=== PATIENT | female | born 2000 | race Two or more races ===

== ENCOUNTER 2021-01-05 20:32 | Emergency (ER) | payer MEDICAID, OTHER ==
[~2021-01-05] VITALS: Ht 157.5 cm; Wt 59.9 kg
[2021-01-05 20:54] LABS: Urine Bacteria FEW /hpf (None Seen); Urine Blood Negative /uL (Negative); Urine Specific Gravity 1.016 (1.001-1.035); Urine WBC 10 /hpf (0 - 5)
[2021-01-05 22:11] LABS: Basophils # (auto) 0 10 ^3/uL (0-0.2); Basophils % (auto) 0.5 % (0.0-2.0); Eosinophils # (auto) 0 10 ^3/uL (0-0.8); Eosinophils % (auto) 0.4 % (0.0-7.0); Hematocrit 44.2 % (36.0-46.0); Hemoglobin 15.4 g/dL (12.2-16.2); Lymphocytes # (auto) 1.4 10 ^3/uL (0.4-5.4); Lymphocytes % (auto) 17.8 % (10.0-50.0); Mean Corpuscular Hemoglobin 30.7 pg (28.0-32.0); Mean Corpuscular Hgb Conc. 34.8 g/dL (32.0-36.0); Mean Corpuscular Volume 88.2 fL (80.0-100.0); Monocytes # (auto) 0.4 10 ^3/uL (0-1.3); Monocytes % (auto) 5.7 % (0.0-12.0); Neutrophils # (auto) 5.9 10 ^3/uL (1.6-8.6); Neutrophils % (auto) 75.6 % (37.0-80.0); Nucleated Red Blood Cells % 0.1 %; Red Blood Cells 5.01 10^6/uL (4.0-5.20); Red Cell Distribution Width 12.4 % (11.8-14.3); White Blood Cell 7.8 10^3/uL (4.4-10.8)
[2021-01-05 22:41] LABS: Albumin 3.9 g/dL (3.4-5.0); Calcium 9.6 mg/dL (8.5-10.1); Potassium 4.1 mmol/L (3.5-5.1)
[2021-01-05 22:44] LABS: BUN/Creatinine Ratio 14.1; Bilirubin, Total 0.3 mg/dL (0.2-1.0); Total Protein 8.1 g/dL (6.4-8.2)
[2021-01-05 23:19] VITALS: BP 118/80
== END 2021-01-05 23:21 | disposition home or self-care (01) ==
LOC: ER 20:34
DX: N39.0 Urinary tract infection, site not specified (principal); R11.2 Nausea with vomiting, unspecified; R19.7 Diarrhea, unspecified
CPT/HCPCS: 36415; 74176; 80053; 81001; 81025; 83690; 85025

== ENCOUNTER 2021-01-18 19:55 | Emergency (ER) | payer MEDICAID ==
[~2021-01-18] VITALS: Ht 157.5 cm; Wt 59.9 kg
[2021-01-18 21:31] LABS: Urine Bacteria MOD /hpf (None Seen); Urine Blood Negative /uL (Negative); Urine Mucus FEW (None Seen); Urine WBC 48 /hpf (0 - 5)
[2021-01-18 22:26] VITALS: BP 143/80
== END 2021-01-18 22:28 | disposition home or self-care (01) ==
LOC: ER 19:59
DX: N39.0 Urinary tract infection, site not specified (principal); Z32.02 Encounter for pregnancy test, result negative
CPT/HCPCS: 81001; 81025; 87086

== ENCOUNTER 2021-01-22 10:19 | Emergency (ER) | payer MEDICAID ==
[~2021-01-22] VITALS: Ht 157.5 cm; Wt 59.9 kg
[2021-01-22 10:55] LABS: Urine Bacteria NONE SEEN /hpf (None Seen); Urine Blood Negative /uL (Negative); Urine Mucus FEW (None Seen); Urine Specific Gravity 1.015 (1.001-1.035); Urine WBC 3 /hpf (0 - 5)
[2021-01-22 12:43] VITALS: BP 138/73
[2021-01-22] MEDS ORDERED: cefTRIAXone SOD 1,000 MG VL IM ONE (13:45)
[2021-01-22] MEDS ORDERED: LIDOCAINE 1% HCL (LOCAL ANESTH.) INJ 20ML MDV ONE (13:50)
== END 2021-01-22 13:50 | disposition home or self-care (01) ==
LOC: ER 10:19
DX: N39.0 Urinary tract infection, site not specified (principal)
CPT/HCPCS: 81001; 81025; 87086; 96372; 99283; J0696; J2001

== ENCOUNTER 2024-07-09 09:27 | Emergency (ER) | payer MEDICAID, OTHER ==
[~2024-07-09] VITALS: Ht 157.5 cm; Wt 67.5 kg
[2024-07-09 09:55] VITALS: BP 112/72; PULSE 108; RESP 16; TEMP 98; O2SAT 97
--- NOTE | 2024-07-09 10:04 | ED.PDOC ---
TEST ENGINE OPERATOR HPI Comments A 23 YEAR OLD FEMALE PRESENTS TO THE ED WITH COMPLAINT OF ABNORMAL VAGINAL BLEEDING X TODAY WITH ABD CRAMPING. PT STATES SHE IS SPOTTING BROWN BLOOD. PT IS APPROXIMATELY 7 WEEKS WITH LMP 04/20/2024. PT DOES NOT HAVE TEST ENGINE OPERATOR YET. PATIENT DENIES FEVER, CHILLS, SHORTNESS OF BREATH, CHEST PAIN, NAUSEA, VOMITING, HEADACHE, OR OTHER COMPLAINTS. NO OTHER SYMPTOMS OR MODIFYING FACTORS AT THIS TIME.PATIENT IS ALERT, ORIENTED X 4, AND HAS STEADY GAIT. Chief Complaint: Vaginal Bleed Time Seen by MD: 09:52 Reviewed Notes: Nurses Notes, Medications, Allergies Allergies: Coded Allergies: NO KNOWN ALLERGIES (Unverified , 01/18/21) Home Meds Active Scripts Ondansetron Odt 4MG Tab (ZOFRAN PO) 4 Mg Tb, 4 MG PO BID, #20 TAB ODT TAB-DISSOLVE IN MOUTH, THEN SWALLOW Prov:FILEMON GAVIN 07/09/24 Nitrofurantoin Monohydrate Mac (Macrobid) 100 Mg Cap, 100 MG PO BID, #14 CAP Prov:FILEMON GAVIN 07/09/24 Information Source: Patient Mode of Arrival: Ambulatory Timing: Hours Severity: Mild Vaginal Discharge: None Vaginal Lesions: None Bleeding Quality: Dark Vaginal Mass: None Onset Of Mass/Bleeding: Spontaneous Sexual Activity: Last Consensual [place]: Unknown Control: None History of: Current Blood Type: Unknown Associated Signs and Symptoms: Vaginal Bleeding, Cramping Past Medical History PAST MEDICAL HISTORY: UTI'S Surgical History: Denies all surgeries OPERATIONAL RISK MANAGER History: No Pertinent OPERATIONAL RISK MANAGER History Family History Family History: Reviewed,noncontributory to illness Social History Smoker: Non-Smoker Alcohol: Denies ETOH Use Drugs: Denies Drug Use Lives In: Home Constitutional: denies: chills, diaphoresis, fatigue, fever, malaise, sweats, weakness, others EENTM: denies: blurred vision, double vision, ear bleeding, ear discharge, ear drainage, ear pain, ear ringing, eye pain, eye redness, hearing loss, mouth pain, mouth swelling, nasal discharge, nose bleeding, nose congestion, nose pain, photophobia, tearing, throat pain, throat swelling, voice changes, others Respiratory: denies: cough, hemoptysis, orthopnea, SOB at rest, shortness of breath, SOB with excertion, stridor, wheezing, others Cardiovascular: denies: chest pain, dizzy spells, diaphoresis, Dyspnea on exertion, edema, irregular heart beat, left arm pain, lightheadedness, palpitations, PND, syncope, others Gastrointestinal: denies: abdomen distended, abdominal pain, blood streaked bowels, constipated, diarrhea, dysphagia, difficulty swallowing, hematemesis, melena, nausea, poor appetite, poor fluid intake, rectal bleeding, rectal pain, vomiting, others Genitourinary: reports: abnormal vagina bleeding, dysuria, pain, ; denies: dyspareunia, flank pain, frequency, hematuria, incontinence, vagina discharge, urgency, others Neurological: denies: dizziness, fainting, headache, left sided numbness, left sided weakness, numbness, paresthesia, pre-existing deficit, right sided numbness, right sided weakness, seizure, speech problems, tingling, tremors, weakness, others Musculoskeletal: denies: back pain, gout, joint pain, joint swelling, muscle pain, muscle stiffness, neck pain, others Integumetry: denies: bruises, change in color, change in hair/nails, dryness, laceration, lesions, lumps, rash, wounds, others Allergic/Immunocompromised: denies: Difficulty Healing, Frequent Infections, Hives, Itching, others Hematologic/Lymphatic: denies: anemia, blood clots, easy bleeding, easy bruising, swollen glands, others Endocrine: denies: excessive hunger, excessive sweating, excessive thirst, excessive urination, flushing, intolerance to cold, intolerance to heat, unexplained weight gain, unexplained weight loss, others Psychiatric: denies: anxiety, bipolar disorder, depression, hopeless, panic disorder, schizophrenia, sleepless, suicidal, others All Other Systems: Reviewed and Negative Physical Exam General Appearance: No Apparent Distress, Normal HEENT: Normal ENT Inspection, PERRL/EOMI, Pharynx Normal, TMs Normal Neck: Full Range of Motion, Non-Tender, Normal, Normal Inspection Respiratory: Chest Non-Tender, Lungs Clear, No Accessory Muscle Use, No Respiratory Distress, Normal Breath Sounds Cardiovascular: No Edema, No JVD, No Murmur, No Gallop, Normal Peripheral Pulses, Regular Rate/Rhythm Breast Exam: Deferred Gastrointestinal: No Organomegaly, Non Tender, No Pulsatile Mass, Normal Bowel Sounds, Soft Genitalia: Deferred Pelvic: Normal Adnexa, Tender Uterus, Other (VAGINAL SPOTTING, NO VAGINAL BLEEDING AND BLOOD CLOTS. ) Rectal: Deferred Extremities: No calf tenderness, Normal capillary refill, Normal inspection, Normal range of motion, Non-tender, No pedal edema Musculoskeletal : Apperance: Normal Neurologic: Alert, rn office II-XII nml as Tested, No Motor Deficits, Normal Affect, Normal Mood, No Sensory Deficits Cerebellar Function: Normal Reflexes: Normal Skin: Dry, Normal Color, Warm Peripheral Pulses: 2+ carotid (R), 2+ carotid (L) Lymphatic: No Adenopathy Was a procedure done? Was a procedure done?: No Differential Diagnosis (OPERATIONAL RISK MANAGER) Vaginal Bleeding: - Threatened, Ectopic , UTI Vaginal Discharge: UTI X-Ray, Labs, Meds, VS Vital Signs Date Time Temp Pulse Resp B/P (MAP) Pulse Ox O2 Delivery O2 Flow Rate FiO2 07/09/24 09:55 98.0 108 16 112/72 (85) 97 98.0 07/09/24 09:55 108 16 97 Room Air 07/09/24 09:37 97.9 110 16 114/70 (85) 98 Lab Test 07/09/24 10:45 07/09/24 09:54 Range/Units White Blood Count 6.8 4.4-10.8 10^3/uL Red Blood Count 5.22 H 4.0-5.20 10^6/uL Hemoglobin 16.1 12.2-16.2 g/dL Hematocrit 46.4 H 36.0-46.0 % Mean Corpuscular Volume 88.9 80.0-100.0 fL Mean Corpuscular Hemoglobin 30.8 28.0-32.0 pg Mean Corpuscular Hemoglobin Concent 34.6 32.0-36.0 g/dL Red Cell Distribution Width 12.7 11.8-14.3 % Platelet Count 305 140-450 10^3/uL Mean Platelet Volume 7.5 6.9-10.8 fL Neutrophils (%) (Auto) 72.6 37.0-80.0 % Lymphocytes (%) (Auto) 19.7 10.0-50.0 % Monocytes (%) (Auto) 5.9 0.0-12.0 % Eosinophils (%) (Auto) 1.3 0.0-7.0 % Basophils (%) (Auto) 0.5 0.0-2.0 % Neutrophils # (Auto) 4.9 1.6-8.6 10 ^3/uL Lymphocytes # (Auto) 1.3 0.4-5.4 10 ^3/uL Monocytes # (Auto) 0.4 0-1.3 10 ^3/uL Eosinophils # (Auto) 0.1 0-0.8 10 ^3/uL Basophils # (Auto) 0 0-0.2 10 ^3/uL Nucleated Red Blood Cells 0.1 % Beta HCG, Quantitative 23385.6 H 1.5-4.2 mIU/mL Urine Color Light-yellow Yellow Urine Clarity Clear Clear Urine pH 6.5 5.0-9.0 Urine Specific [place] 1.014 1.001-1.035 Urine Protein Negative Negative Urine Ketones Negative Negative Urine Blood 2+ H Negative /uL Urine Nitrite Negative Negative Urine Bilirubin Negative Negative Urine Urobilinogen Normal Negative mg/dL Urine Leukocyte Esterase 2+ Negative /uL Urine RBC 2 0 - 4 /hpf Urine Microscopic WBC 4 0-5 /HPF Urine Squamous Epithelial Cells Few <5 /hpf Urine Bacteria Few H None Seen /hpf Urine Glucose Normal Normal mg/dL [place] [id number] Ph: [phone] DIAGNOSTIC IMAGING Diagnostic Imaging Report : [id number] Signed PATIENT: JEWELL MALDONADO ACCT: [id number] UNIT: [id number] : 2000 LOC: ER ROOM / BED: / AGE / SEX: 23 / F ADM STATUS: REG ER SERVICE [id number] ORDERING PHYSICIAN: FILEMON GAVIN PROCEDURE(s): OB4US - OB ULTRASOUND COMP LESS 14WKS REASON: VAGINAL SPOTTING ORDER NUMBER(s): [id number], ACCESSION NUMBER(s): [id number] STUDY: Transabdominal and Transvaginal Pelvic Ultrasound. Indication: VAGINAL SPOTTING COMPARISON: None FINDINGS: The uterus measures 9.5 cm. Intrauterine gestational sac measuring 1.5 cm. crown-rump length is 6 mm. Yolk sac present. No heart tones identified. Subchorionic hemorrhage measuring 1.4 x 0.9 cm. The right ovary measures 2.5 x 1.7 x 2.4 cm. Right ovarian cyst with simple features measuring 4.3 cm. The left ovary measures 5 x 3.5 x 4.9 cm . Bilateral ovarian Doppler flow is identified. No free fluid is seen within the pelvis. IMPRESSION: 1. Intrauterine dating to 6 weeks, 1 day. Subchorionic hemorrhage measuring 1.4 cm. 2. 6 mm. NoFetal crown-rump length heart tones identified, raising concern /suspicious for failed early . Recommend follow-up ultrasound and beta HCG correlation. 3. Right ovarian cyst with simple features measuring 4.3 cm. ATED BY: JOSE LUIS GARCIA MD DICTATED DATE/TIME: 07/09/241057 SIGNED BY: JOSE LUIS GARCIA MD SIGNED DATE/TIME: 07/09/241057 CC: X-Ray, Labs, Meds, VS Comment COURSE: EXTERNAL MEDICAL RECORDS REVIEWED: [NONE] INDEPENDENT HISTORIANS: [NONE] SOCIAL DETERMINANTS OF HEALTH: [NONE] LABS ORDERED: CBC, BETA HCG QUANT, UA REVIEWED AND INTERPRETED RESULTS: CBC, BETA HCG QUANT, UA IMAGING ORDERED: OB U/S TREATMENTS ORDERED: NONE PROCEDURES PERFORMED: NONE CRITICAL CARE TIME: NONE I HAVE DISCUSSED THE PATIENT WITH THE ATTENDING PHYSICIAN DR. PUGA AND HE AGREES WITH THE PATIENT'S PLAN OF CARE AND DISPOSITION. BASED ON HISTORY OF PRESENT ILLNESS, AND PHYSICAL EXAM, PATIENT WILL BE DISCHARGED HOME. DISCUSSED PLAN FOR DISCHARGE HOME WITH RX. MEDICATION WARNINGS GIVEN. SHARED DECISION MAKING: DISCUSSED WITH PATIENT THAT THEIR WORKUP WAS NORMAL. PATIENT INSTRUCTED TO FOLLOW UP WITH PRIMARY CARE PROVIDER IN 1-2 DAYS FOR RE- EVALUATION OF SYMPTOMS. PATIENT VERBALIZES UNDERSTANDING TO RETURN TO ED FOR NEW OR WORSENING SYMPTOMS OR IF FOLLOW UP WITH PCP CANNOT BE OBTAINED. PATIENT FEELS COMFORTABLE GOING HOME AT THIS TIME. ALL QUESTIONS ADDRESSED AT TIME OF DISCHARGE. Time of 1ST Reevaluation: 12:12 Reevaluation 1ST: Improved Patient Education/Counseling: Diagnosis, Treatment, Need For Follow Up Family Education/Counseling: Diagnosis, Treatment, No Family Present Medical Screening: No EMC Exist At This Time Departure 1 Departure Time of Disposition: 12:12 Impression: Primary Impression: Vaginal spotting Additional Impressions: Threatened in first trimester Right ovarian cyst Acute cystitis Qualified Codes: N30.00 - Acute cystitis without hematuria Disposition: HOME / SELF CARE / HOMELESS Condition: Stable Additional Instructions: FOLLOW-UP WITH TEST ENGINE OPERATOR IN 2 DAYS. TAKE MEDICATIONS PRESCRIBED. RETURN TO ED FOR ANY NEW OR WORSENING SYMPTOMS. e-Prescriptions Ondansetron Odt 4MG Tab (ZOFRAN PO) 4 Mg Tb 4 MG PO BID, #20 TAB ODT TAB-DISSOLVE IN MOUTH, THEN SWALLOW Prov: FLIEMON GAVIN 07/09/24 Nitrofurantoin Monohydrate Mac (Macrobid) 100 Mg Cap 100 MG PO BID, #14 CAP Prov: FILEMON GAVIN 07/09/24 Discharged With: Self Critical Care Note Critical Care Time?: No Stability Stability form required: No Heart Score Heart Score: Heart Score Response (Comments) Value History N/A 0 EKG N/A 0 Age N/A 0 Risk Factors N/A 0 Troponin N/A 0 Total 0 I personally scribed for FILEMON GAVIN ([email or web address]) on 07/09/24 at 10:03. Electronically submitted by Barbie Engel ([email or web address]). I personally scribed for FILEMON GAVIN ([email or web address]) on 07/09/24 at 11:02. Electronically submitted by Barbie Engel ([email or web address]). FILEMON GAVIN Jul 09, 2024 10:03
[2024-07-09 10:24] LABS: Urine Bacteria FEW /hpf (None Seen); Urine Blood 2+ /uL (Negative); Urine Clarity Clear (Clear); Urine Color Light-Yellow (Yellow); Urine Protein, UAD Negative (Negative); Urine Specific Gravity 1.014 (1.001-1.035); Urine Squamous Epithelial Cell FEW /hpf (<5); Urine Urobilinogen Normal (Negative); Urine WBC 4 /HPF (0-5); Urine pH 6.5 (5.0-9.0)
--- NOTE | 2024-07-09 11:01 | DVH ---
STUDY: Transabdominal and Transvaginal Pelvic Ultrasound. Indication: VAGINAL SPOTTING COMPARISON: None FINDINGS: The uterus measures 9.5 cm. Intrauterine gestational sac measuring 1.5 cm. crown-rump length is 6 mm. Yolk sac present. No heart tones identified. Subchorionic hemorrhage measuring 1.4 x 0.9 cm. The right ovary measures 2.5 x 1.7 x 2.4 cm. Right ovarian cyst with simple features measuring 4.3 c m. The left ovary measures 5 x 3.5 x 4.9 cm . Bilateral ovarian Doppler flow is identified. No free fluid is seen within the pelvis. IMPRESSION: 1. Intrauterine dating to 6 weeks, 1 day. Subchorionic hemorrhage measuring 1.4 cm. 2. 6 mm. NoFetal crown-rump length heart tones identified, raising concern /suspicious for failed ea rly . Recommend follow-up ultrasound and beta HCG correlation. 3. Right ovarian cyst with simple features measuring 4.3 cm.
[2024-07-09 11:17] LABS: Basophils # (auto) 0 10 ^3/uL (0-0.2); Basophils % (auto) 0.5 % (0.0-2.0); Eosinophils # (auto) 0.1 10 ^3/uL (0-0.8); Eosinophils % (auto) 1.3 % (0.0-7.0); Hematocrit 46.4 % (36.0-46.0); Hemoglobin 16.1 g/dL (12.2-16.2); Lymphocytes # (auto) 1.3 10 ^3/uL (0.4-5.4); Lymphocytes % (auto) 19.7 % (10.0-50.0); Mean Corpuscular Hemoglobin 30.8 pg (28.0-32.0); Mean Corpuscular Hgb Conc. 34.6 g/dL (32.0-36.0); Mean Corpuscular Volume 88.9 fL (80.0-100.0); Monocytes # (auto) 0.4 10 ^3/uL (0-1.3); Monocytes % (auto) 5.9 % (0.0-12.0); Neutrophils # (auto) 4.9 10 ^3/uL (1.6-8.6); Neutrophils % (auto) 72.6 % (37.0-80.0); Nucleated Red Blood Cells % 0.1 %; Platelet Count (auto) 305 10^3/uL (140-450); Red Blood Cells 5.22 10^6/uL (4.0-5.20); Red Cell Distribution Width 12.7 % (11.8-14.3); White Blood Cell 6.8 10^3/uL (4.4-10.8)
[2024-07-09] MEDS ORDERED: ZOFR4T PO (12:11)
[2024-07-09] MEDS ORDERED: NITR-87 PO (12:11)
== END 2024-07-09 12:23 | disposition home or self-care (01) ==
LOC: ER 09:27
DX: O20.0 Threatened abortion (principal); N93.8 Other specified abnormal uterine and vaginal bleeding; N83.201 Unspecified ovarian cyst, right side; Z3A.01 Less than 8 weeks gestation of pregnancy
CPT/HCPCS: 36415; 76801; 76817; 81001; 84702; 85025

== ENCOUNTER 2024-08-11 22:56 | Emergency (ER) | payer MEDICAID, OTHER ==
[~2024-08-11] VITALS: Ht 157.5 cm; Wt 80.0 kg
[~2024-08-11 22:56] MED LIST: NITR-87 PO; ZOFR4T PO
--- NOTE | 2024-08-11 23:28 | ED.PDOC ---
HISTORIC CLOTHING AND COSTUME MAKER HPI Comments 23-year-old female that came to ER for vaginal bleeding. Patient is a , approximately 6 week . About 2 hours ago, she started having profuse vaginal bleeding, associated with lower abdominal cramping pain. Patient on the way to the emergency room had a syncopal attack. Blood pressure upon arrival was 128/104 mmHg Chief Complaint: Vaginal Bleed Time Seen by MD: 23:27 Reviewed Notes: Nurses Notes Allergies: Coded Allergies: NO KNOWN ALLERGIES (Unverified , 01/18/21) Home Meds Active Scripts Ondansetron Odt 4MG Tab (ZOFRAN PO) 4 Mg Tb, 4 MG PO BID, #20 TAB ODT TAB-DISSOLVE IN MOUTH, THEN SWALLOW Prov:FILEMON GAVIN 07/09/24 Nitrofurantoin Monohydrate Mac (Macrobid) 100 Mg Cap, 100 MG PO BID, #14 CAP Prov:FILEMON GAVIN 07/09/24 Information Source: Patient Mode of Arrival: Ambulatory Timing: Hours Severity: Severe Bleeding Quality: Bright Red, Dark Onset Of Mass/Bleeding: Spontaneous Sexual Activity: Last Consensual [place]: Unknown Associated Signs and Symptoms: Vaginal Bleeding, Abdominal Pain, Faintness, Cramping Past Medical History PAST MEDICAL HISTORY: UTI'S Surgical History: Denies all surgeries SENIOR NETWORK ENGINEER History: No Pertinent SENIOR NETWORK ENGINEER History 2 Para 0 Family History Family History: Reviewed,noncontributory to illness Social History Smoker: Non-Smoker Alcohol: Denies ETOH Use Drugs: Denies Drug Use Lives In: Home Constitutional: denies: chills, diaphoresis, fatigue, fever, malaise, sweats, weakness, others EENTM: denies: blurred vision, double vision, ear bleeding, ear discharge, ear drainage, ear pain, ear ringing, eye pain, eye redness, hearing loss, mouth pain, mouth swelling, nasal discharge, nose bleeding, nose congestion, nose pain, photophobia, tearing, throat pain, throat swelling, voice changes, others Respiratory: denies: cough, hemoptysis, orthopnea, SOB at rest, shortness of breath, SOB with excertion, stridor, wheezing, others Cardiovascular: denies: chest pain, dizzy spells, diaphoresis, Dyspnea on exertion, edema, irregular heart beat, left arm pain, lightheadedness, palpitations, PND, syncope, others Gastrointestinal: reports: abdominal pain; denies: abdomen distended, blood streaked bowels, constipated, diarrhea, dysphagia, difficulty swallowing, hematemesis, melena, nausea, poor appetite, poor fluid intake, rectal bleeding, rectal pain, vomiting, others Genitourinary: reports: abnormal vagina bleeding; denies: burning, dyspareunia, dysuria, flank pain, frequency, hematuria, incontinence, pain, , vagina discharge, urgency, others Neurological: reports: dizziness, fainting; denies: headache, left sided numbness, left sided weakness, numbness, paresthesia, pre-existing deficit, right sided numbness, right sided weakness, seizure, speech problems, tingling, tremors, weakness, others Musculoskeletal: denies: back pain, gout, joint pain, joint swelling, muscle pain, muscle stiffness, neck pain, others Integumetry: denies: bruises, change in color, change in hair/nails, dryness, laceration, lesions, lumps, rash, wounds, others Allergic/Immunocompromised: denies: Difficulty Healing, Frequent Infections, Hives, Itching, others Hematologic/Lymphatic: denies: anemia, blood clots, easy bleeding, easy bruising, swollen glands, others Endocrine: denies: excessive hunger, excessive sweating, excessive thirst, excessive urination, flushing, intolerance to cold, intolerance to heat, unexplained weight gain, unexplained weight loss, others Psychiatric: denies: anxiety, bipolar disorder, depression, hopeless, panic disorder, schizophrenia, sleepless, suicidal, others Physical Exam General Appearance: No Apparent Distress, Normal HEENT: Normal ENT Inspection, Pharynx Normal, TMs Normal Neck: Full Range of Motion, Non-Tender, Normal, Normal Inspection Respiratory: Chest Non-Tender, Lungs Clear, No Accessory Muscle Use, No Respiratory Distress, Normal Breath Sounds Cardiovascular: No Edema, No JVD, No Murmur, No Gallop, Normal Peripheral Pulses, Regular Rate/Rhythm Breast Exam: Deferred Gastrointestinal: No Organomegaly, Non Tender, No Pulsatile Mass, Normal Bowel Sounds, Soft Genitalia: Deferred Pelvic: Deferred Rectal: Deferred Extremities: No calf tenderness, Normal capillary refill, Normal inspection, Normal range of motion, Non-tender, No pedal edema Musculoskeletal : Apperance: Normal Neurologic: Alert, pre billing specialist II-XII nml as Tested, No Motor Deficits, Normal Affect, Normal Mood, No Sensory Deficits Cerebellar Function: Normal Reflexes: Normal Skin: Dry, Normal Color, Warm Lymphatic: No Adenopathy Was a procedure done? Was a procedure done?: No Differential Diagnosis (SENIOR NETWORK ENGINEER) Vaginal Bleeding: - Inevitable, - Missed, - Threatened, Menorrhagia, Menometrorrhagia, Menstrual Bleeding, Placenta Previa, UTI X-Ray, Labs, Meds, VS Vital Signs Date Time Temp Pulse Resp B/P (MAP) Pulse Ox O2 Delivery O2 Flow Rate FiO2 08/12/24 01:45 96 12 Room Air* 0 21 08/12/24 01:40 98 16 106/51 (69) 98 08/11/24 23:45 98.3 77 18 128/104 (112) 100 98.3 08/11/24 23:45 77 18 Room Air* 0 21 08/11/24 23:00 98.3 62 18 128/104 (112) 100 98.3 Lab Test 08/11/24 23:16 08/11/24 23:00 Range/Units White Blood Count 9.2 4.4-10.8 10^3/uL Red Blood Count 4.52 4.0-5.20 10^6/uL Hemoglobin 14.2 12.2-16.2 g/dL Hematocrit 40.0 36.0-46.0 % Mean Corpuscular Volume 88.5 80.0-100.0 fL Mean Corpuscular Hemoglobin 31.4 28.0-32.0 pg Mean Corpuscular Hemoglobin Concent 35.5 32.0-36.0 g/dL Red Cell Distribution Width 12.6 11.8-14.3 % Platelet Count 369 140-450 10^3/uL Mean Platelet Volume 7.0 6.9-10.8 fL Neutrophils (%) (Auto) 54.5 37.0-80.0 % Lymphocytes (%) (Auto) 36.0 10.0-50.0 % Monocytes (%) (Auto) 7.1 0.0-12.0 % Eosinophils (%) (Auto) 1.7 0.0-7.0 % Basophils (%) (Auto) 0.7 0.0-2.0 % Neutrophils # (Auto) 5.0 1.6-8.6 10 ^3/uL Lymphocytes # (Auto) 3.3 0.4-5.4 10 ^3/uL Monocytes # (Auto) 0.7 0-1.3 10 ^3/uL Eosinophils # (Auto) 0.2 0-0.8 10 ^3/uL Basophils # (Auto) 0.1 0-0.2 10 ^3/uL Nucleated Red Blood Cells 0.1 % Sodium Level 138 136-145 mmol/L Potassium Level 3.4 L 3.5-5.1 mmol/L Chloride Level 107 98-107 mmol/L Carbon Dioxide Level 21 20-31 mmol/L Anion Gap 10 5-15 Blood Urea Nitrogen 9 9-23 mg/dL Creatinine 0.77 0.550-1.02 mg/dL Glomerular Filtration Rate Calc 111 >90 mL/min BUN/Creatinine Ratio 11.7 10.0-20.0 Serum Glucose 130 H 74-106 mg/dL Calcium Level 9.8 8.7-10.4 mg/dL Beta HCG, Quantitative 2963.6 H 1.5-4.2 mIU/mL POC Glucose 115 H 70-106 mg/dl Current Medications Medications (Trade) Dose Ordered Sig/Maycol Route Start Time Stop Time Status Last Admin Sodium Chloride 1,000 ml @ 1,000 mls/hr Q1H ONCE IV 08/11/24 23:30 08/12/24 00:29 DC 08/11/24 23:36 Ondansetron HCl (Zofran) 4 mg ONCE ONCE IV 08/11/24 23:30 08/11/24 23:31 DC 08/11/24 23:36 Time of 1ST Reevaluation: 23:21 Reevaluation 1ST: Unchanged Patient Education/Counseling: Diagnosis, Treatment Family Education/Counseling: Diagnosis, Treatment Departure 1 Departure Time of Disposition: 02:26 (Patient unlikely with a miscarriage. We will discharge patient home with outpatient follow up) Impression: Primary Impression: Miscarriage Disposition: 01 HOME / SELF CARE / HOMELESS Condition: Stable Additional Instructions: You had a miscarriage. It is important to follow up with your OBGYN this week If your symptoms worsen or if any other concerns please return to the emergency room Discharged With: Significant Other Critical Care Note Critical Care Time?: Yes (35 min-critical care time only) Critical care comment: Vaginal bleeding, syncopal attack Stability Stability form required: No Heart Score Heart Score: Heart Score Response (Comments) Value History N/A 0 EKG N/A 0 Age N/A 0 Risk Factors N/A 0 Troponin N/A 0 Total 0 I personally scribed for KINSEY SULLIVAN MD ([email or web address]) on 08/11/24 at 23:28. Electronically submitted by Hamlet Palafox ([facility] KINSEY SULLIVAN MD Aug 11, 2024 23:28
[2024-08-11] MEDS: ONDANSETRON HCL 4 MG/2 ML VIAL IV ONE (23:36)
[2024-08-11] MEDS: SODIUM CHLORIDE 0.9% 1,000 ML IV ONE (23:36)
[2024-08-11 23:45] VITALS: PULSE 77; RESP 18; TEMP 98.3
[2024-08-12 00:03] LABS: Basophils # (auto) 0.1 10 ^3/uL (0-0.2); Basophils % (auto) 0.7 % (0.0-2.0); Eosinophils # (auto) 0.2 10 ^3/uL (0-0.8); Eosinophils % (auto) 1.7 % (0.0-7.0); Hemoglobin 14.2 g/dL (12.2-16.2); Lymphocytes # (auto) 3.3 10 ^3/uL (0.4-5.4); Mean Corpuscular Hemoglobin 31.4 pg (28.0-32.0); Mean Corpuscular Hgb Conc. 35.5 g/dL (32.0-36.0); Mean Corpuscular Volume 88.5 fL (80.0-100.0); Monocytes # (auto) 0.7 10 ^3/uL (0-1.3); Monocytes % (auto) 7.1 % (0.0-12.0); Neutrophils % (auto) 54.5 % (37.0-80.0); Nucleated Red Blood Cells % 0.1 %; Platelet Count (auto) 369 10^3/uL (140-450); Red Blood Cells 4.52 10^6/uL (4.0-5.20); Red Cell Distribution Width 12.6 % (11.8-14.3); White Blood Cell 9.2 10^3/uL (4.4-10.8)
[2024-08-12 00:15] LABS: Sodium 138 mmol/L (136-145)
[2024-08-12] MEDS: MORPHINE SULFATE 4 MG/ML SYR/VIAL IV ONE (00:15)
[2024-08-12 00:16] LABS: Anion Gap 10 (5-15); Carbon Dioxide 21 mmol/L (20-31)
[2024-08-12 00:17] LABS: Calcium 9.8 mg/dL (8.7-10.4); Chloride 107 mmol/L (98-107); Potassium 3.4 mmol/L (3.5-5.1)
[2024-08-12 00:21] LABS: BUN/Creatinine Ratio 11.7 (10.0-20.0)
[2024-08-12 00:24] LABS: Blood Urea Nitrogen 9 mg/dL (9-23); Glucose 130 mg/dL (74-106)
--- NOTE | 2024-08-12 01:04 | DVH ---
INDICATION: abdominal pain and vaginal bleeding TECHNIQUE: Multiple real-time grayscale transabdominal sonographic images along with color and duplex Doppler of the uterus and ovaries were obtained. COMPARISON: US OB ULTRASOUND COMP LESS 14WKS on DOS: 07/09/24 FINDINGS: The uterus measures 10.3 x 6.1 x 4.9 cm. The endometrial stripe measures 1.1 cm and is mode rately heterogeneous in its echotexture with fluid present. No evidence of intrauterine . Right ovary measures 2.6 x 2.1 x 2.1 cm with normal Doppler color flow Left ovary measures 4.7 x 3.5 x 4.9 cm and is associated with a 3.7 x 3.5 x 4.5 cm hypoechoic cyst wi th otherwise normal Doppler color flow IMPRESSION: 1. Moderately heterogeneous thickened endometrial stripe in association with fluid. No definite evide nce of intrauterine . 2. Left ovarian cyst.
[2024-08-12 01:40] VITALS: BP 106/51; O2SAT 98
[2024-08-12 01:45] VITALS: PULSE 96; RESP 12
== END 2024-08-12 05:11 | disposition home or self-care (01) ==
LOC: ER 22:56
DX: O02.1 Missed abortion (principal)
CPT/HCPCS: 36415; 76801; 80048; 82947; 84702; 85025; 86850; 86900; 86901; 96374; 99285; J2405; 82962

== ENCOUNTER 2024-09-04 14:20 | Emergency (ER) | payer MEDICAID ==
[~2024-09-04] VITALS: Ht 157.5 cm; Wt 67.9 kg
[2024-09-04 14:40] VITALS: BP 116/71; PULSE 10; RESP 16; TEMP 98.2; O2SAT 97
--- NOTE | 2024-09-04 15:14 | ED.PDOC ---
GI ASSESSMENT HPI Comments 23y F who presents to the ED for chief complaint of abdominal pain. Pt states she had miscarriage 2-3 weeks prior and states she had been having bleeding which stopped 1 week prior. Pt states she has noted since,she has been having lower pelvic abdominal pain and came to the ED for further evaluation. Pt states she came to get HCG levels checked for any abnormality. Pt otherwise has noted RR 10 but otherwise has noted stable vitals in the ED. Pt otherwise denies any other symptoms at this time. Chief Complaint: Abdominal Pain Time Seen by MD: 15:11 Primary Care Provider: none Reviewed Notes: Nurses Notes, Medications, Allergies Allergies: Coded Allergies: NO KNOWN ALLERGIES (Unverified , 01/18/21) Home Meds Active Scripts Ondansetron Odt 4MG Tab (ZOFRAN PO) 4 Mg Tb, 4 MG PO BID, #20 TAB ODT TAB-DISSOLVE IN MOUTH, THEN SWALLOW Prov:FILEMON GAVIN 07/09/24 Nitrofurantoin Monohydrate Mac (Macrobid) 100 Mg Cap, 100 MG PO BID, #14 CAP Prov:FILEMON GAVIN 07/09/24 Information Source: Patient Mode of Arrival: Ambulatory Brought in by: self Timing: Days Duration: Since onset Prehospital treatment: None Quality: Aching Vomitus: None Stool: Normal Severity: Moderate Recent: None Recent Hx of: None Pain Location: Suprapubic Modifying Factors: Nothing Associated sign and symptoms: Abdominal Pain Past Medical History PAST MEDICAL HISTORY: UTI'S Surgical History: Denies all surgeries SENIOR ADVISORY History: No Pertinent SENIOR ADVISORY History Family History Family History: Reviewed,noncontributory to illness Social History Smoker: Non-Smoker Alcohol: Denies ETOH Use Drugs: Denies Drug Use Lives In: Home Constitutional: denies: chills, diaphoresis, fatigue, fever, malaise, sweats, weakness, others EENTM: denies: blurred vision, double vision, ear bleeding, ear discharge, ear drainage, ear pain, ear ringing, eye pain, eye redness, hearing loss, mouth pain, mouth swelling, nasal discharge, nose bleeding, nose congestion, nose pain, photophobia, tearing, throat pain, throat swelling, voice changes, others Respiratory: denies: cough, hemoptysis, orthopnea, SOB at rest, shortness of breath, SOB with excertion, stridor, wheezing, others Cardiovascular: denies: chest pain, dizzy spells, diaphoresis, Dyspnea on exertion, edema, irregular heart beat, left arm pain, lightheadedness, palpitations, PND, syncope, others Gastrointestinal: reports: abdominal pain; denies: abdomen distended, blood streaked bowels, constipated, diarrhea, dysphagia, difficulty swallowing, hematemesis, melena, nausea, poor appetite, poor fluid intake, rectal bleeding, rectal pain, vomiting, others Genitourinary: denies: abnormal vagina bleeding, burning, dyspareunia, dysuria, flank pain, frequency, hematuria, incontinence, pain, , vagina discharge, urgency, others Neurological: denies: dizziness, fainting, headache, left sided numbness, left sided weakness, numbness, paresthesia, pre-existing deficit, right sided numbness, right sided weakness, seizure, speech problems, tingling, tremors, weakness, others Musculoskeletal: denies: back pain, gout, joint pain, joint swelling, muscle pain, muscle stiffness, neck pain, others Integumetry: denies: bruises, change in color, change in hair/nails, dryness, laceration, lesions, lumps, rash, wounds, others Allergic/Immunocompromised: denies: Difficulty Healing, Frequent Infections, Hives, Itching, others Hematologic/Lymphatic: denies: anemia, blood clots, easy bleeding, easy bruising, swollen glands, others Endocrine: denies: excessive hunger, excessive sweating, excessive thirst, excessive urination, flushing, intolerance to cold, intolerance to heat, unexplained weight gain, unexplained weight loss, others Psychiatric: denies: anxiety, bipolar disorder, depression, hopeless, panic disorder, schizophrenia, sleepless, suicidal, others All Other Systems: Reviewed and Negative Physical Exam General Appearance: No Apparent Distress HEENT: Normal ENT Inspection, Pharynx Normal, TMs Normal Neck: Full Range of Motion, Non-Tender, Normal, Normal Inspection Respiratory: Chest Non-Tender, Lungs Clear, No Accessory Muscle Use, No Respiratory Distress, Normal Breath Sounds Cardiovascular: No Edema, No JVD, No Murmur, No Gallop, Normal Peripheral Pulses, Regular Rate/Rhythm Breast Exam: Deferred Gastrointestinal: No Organomegaly, Non Tender, No Pulsatile Mass, Normal Bowel Sounds, Soft Genitalia: Deferred Pelvic: Deferred Rectal: Deferred Extremities: No calf tenderness, Normal capillary refill, Normal inspection, Normal range of motion, Non-tender, No pedal edema Musculoskeletal : Apperance: Normal 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 Was a procedure done?: No GI differential Dx Differential Diagnosis: Trauma intraabdominal, UTI, Dehydration, Hypovolemia X-Ray, Labs, Meds, VS Vital Signs Date Time Temp Pulse Resp B/P (MAP) Pulse Ox O2 Delivery O2 Flow Rate FiO2 09/04/24 14:40 98.2 10 16 116/71 (86) 97 98.2 Lab Test 09/04/24 14:46 Range/Units Beta HCG, Quantitative 11.3 H 1.5-4.2 mIU/mL The quantitative hCG is 11.3 The ultrasound of the pelvis shows: Impression: No intrauterine is visualized. An ectopic can not be excluded. Recommend correlation with beta HCG and ultrasound as clinically indicated. Bilateral ovarian dominant follicle/small cyst. At this time, the patient was being discharged The patient will return to the emergency department's the condition worsens The patient understands and agrees with the management. Images Reviewed?: Images reviewed and evaluated by me Time of 1ST Reevaluation: 15:40 Reevaluation 1ST: Unchanged Patient Education/Counseling: Diagnosis, Treatment, Prognosis, Need For Follow Up Family Education/Counseling: No Family Present Departure 1 Departure Time of Disposition: 16:24 Impression: Primary Impression: Miscarriage Additional Impression: Pelvic pain Disposition: 01 HOME / SELF CARE / HOMELESS Condition: Fair Discharged With: Self Critical Care Note Critical Care Time?: No Stability Stability form required: No Heart Score Heart Score: Heart Score Response (Comments) Value History N/A 0 EKG N/A 0 Age N/A 0 Risk Factors N/A 0 Troponin N/A 0 Total 0 I personally scribed for OTTO CAMPUZANO MD ([email or web address]) on 09/04/24 at 15:13. Electronically submitted by Marissa Zaragoza ([email or web address]). OTTO CAMPUZANO MD Sep 04, 2024 15:13
--- NOTE | 2024-09-04 16:13 | DVH ---
Procedure: US OB ULTRASOUND COMP LESS 14WKS Study Date and Requested Time: 09/04/2024 03:24 PM Study Description: US OB ULTRASOUND COMP LESS 14WKS History: pain and status post miscarriage Comparison: US OB ULTRASOUND COMP LESS 14WKS on DOS: 08/12/24, US OB ULTRASOUND COMP LESS 14WKS on DOS : 07/09/24 Technique: Multiple high resolution white-scale images obtained of the uterus, fetus, and other gestat ional components with M-mode scanning for evaluation of heart rate. Findings: No intrauterine is visualized. Uterus measures 8.3 x 3.8 x 5.2 cm in size. Endometrial thickness of 0.5 cm. Small amount of fluid wi thin endocervical canal. Right ovary measures 3.3 x 3 x 2.1 cm with a 1.3 cm cyst. Left ovary measures 3.4 x 2.9 x 2.9 cm with a 2.6 cm cyst. Normal ovarian color Doppler flow bilaterally. No evidence of cystic or solid ovarian lesions. No evidence of free fluid in the cul-de-sac. Impression: No intrauterine is visualized. An ectopic can not be excluded. Recommend correla tion with beta HCG and ultrasound as clinically indicated. Bilateral ovarian dominant follicle/small cyst.
== END 2024-09-04 16:23 | disposition home or self-care (01) ==
LOC: ER 14:20
DX: O03.9 Complete or unspecified spontaneous abortion without complication (principal); Z79.899 Other long term (current) drug therapy
CPT/HCPCS: 36415; 76801; 76817; 84702